=== PATIENT | male | born 1965 | race Caucasian/White ===

== ENCOUNTER → 2021-11-21 | Outpatient (CLI) | payer BC ==
--- NOTE | 2021-11-21 09:39 | Diagnostic Imaging Report ---
HISTORY: Right knee pain TECHNIQUE: 3 views of the right knee COMPARISON: None FINDINGS: No acute fracture or dislocation is seen in the right knee. Alignment appears normal. Joint spaces are preserved. There is a small right knee joint effusion. IMPRESSION: 1. Small right knee joint effusion with no acute osseous abnormality seen. Dictated by: Dictated on workstation # [id number]
== END ==
LOC: RAD FS 08:48
PROVIDERS: ATTEND Nurse Practitioner
DX: M25.461 Effusion, right knee (principal); M25.561 Pain in right knee
CPT/HCPCS: 73562

== ENCOUNTER → 2022-06-07 | Outpatient (CLI) | payer BC ==
--- NOTE | 2022-06-07 14:20 | Diagnostic Imaging Report ---
INDICATION: PAIN IN LEFT HAND COMPARISON: None. FINDINGS: 3 views of the left hand were obtained and show no fractures, dislocations, or other acute bony abnormalities. Joint spaces are well maintained throughout. The soft tissues appear unremarkable. No unexpected radiopaque foreign bodies are identified. IMPRESSION: Unremarkable radiographic exam of the left hand. Dictated by: Dictated on workstation # [id number]
== END ==
LOC: RAD FS 09:45
PROVIDERS: ATTEND Nurse Practitioner
DX: M79.642 Pain in left hand (principal)
CPT/HCPCS: 73130